=== PATIENT | male | born 1940 | race Two or more races ===

== ENCOUNTER 2020-05-25 09:31 | Inpatient (IN) | payer OTHER ==
[2020-05-25] MEDS ORDERED: ACETAMINOPHEN 1000 MG/100 ML VIAL (NON FORMULARY) IVPB ONE (09:52)
[2020-05-25] MEDS ORDERED: LACTATED RINGERS SOLUTION 1000 ML INFUS.BAG IV STA (09:52)
--- NOTE | 2020-05-25 09:56 | PDOC ---
History of Present Illness - General Chief Complaint: Blood Pressure Problem Stated Complaint: ABSCESS/BP PROBLEM Time Seen by Provider: 05/25/20 09:51 - History of Present Illness Initial Comments: 80 yo male with PMH of metastatic prostate cancer, chronic indwelling catheter, recurrent UTI, chronic pressure ulcer, T2DM, HTN, CAD with CABG. He is brought in from [facility] [address] by EMS for hypotension measuring 90s/50's. He is altered and speaks primarily czech. He endorses shortness of breath, numbness/tingling in upper extremities. 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 His daughter (Adela, ) informed us that he is DNR w/ Comfort Care and chemo/radiation were discontinued. 05/25/20 11:04 Past History - Medical History Allergies/Adverse Reactions: Allergies Allergy/AdvReac Type Severity Reaction Status Date / Time No Known Allergies Allergy Verified 05/25/20 10:28 Home Medications: Ambulatory Orders Abiraterone Acetate [Zytiga] 1,000 mg PO DAILY 05/25/20 Acetaminophen [Tylenol] 650 mg PO Q6H 05/25/20 Aspirin [ASA -] 81 mg PO DAILY 05/25/20 Cefepime HCl/D5w [Maxipime 1 gm Premix Ivpb] 1 gm IV BID 05/25/20 Cholecalciferol (Vitamin D3) [Vitamin D3] 25 mcg PO DAILY 05/25/20 Digoxin [Lanoxin -] 0.125 mg PO DAILY 05/25/20 Enoxaparin Sodium 40 mg SQ DAILY 05/25/20 Insulin Aspart [Novolog] 0 unit SQ PRN 05/25/20 Lisinopril [Prinivil -] 40 mg PO DAILY 05/25/20 Oxycodone HCl 5 mg PO Q6H PRN 05/25/20 Pantoprazole Sodium [Protonix -] 40 mg PO DAILY 05/25/20 Polyethylene Glycol 3350 17 gm PO Q3D 05/25/20 Pravastatin Sodium [Pravachol (Nf)] 80 mg PO DAILY 05/25/20 Sennosides [Senna Lax] 17.2 mg PO HS 05/25/20 Terazosin HCl [Hytrin] 1 mg PO HS 05/25/20 Review of Systems - Review of Systems Constitutional: Yes: Diaphoresis. No: Chills, Fever HEENTM: No: Recent change in vision, Double Vision Respiratory: Yes: Shortness of Breath, SOB at Rest. No: Cough Cardiac (ROS): No: Chest Pain, Edema, Irregular Heart Rate ABD/GI: No: Diarrhea, Nausea, Vomiting : No: Burning, Dysuria, Hematuria Integumentary: Yes: Bruising, Erythema, Lesions (sacral pressure ulcer) Neurological: Yes: Tingling, Tremors, Dizziness. No: Headache Endocrine: Yes: Unexplained Weight Loss. No: Intolerance to Cold, Intolerance to Heat *Physical Exam - Physical Exam General Appearance: Yes: Appropriately Dressed, Apparent Distress. No: Nourished HEENT: positive: EOMI, MARQUEZ, Normal Voice Respiratory/Chest: positive: Lungs Clear, Normal Breath Sounds. negative: Respiratory Distress Cardiovascular: positive: Regular Rhythm, Regular Rate, S1, S2, Edema (mild diffuse edema in all four extremities. ) Vascular Pulses: Femoral (R): 3+, Femoral (L): 3+, Carotid (R): 3+, Carotid (L): 3+, Dorsalis-Pedis (R): 3+, Doralis-Pedis (L): 3+ Gastrointestinal/Abdominal: positive: Normal Bowel Sounds, Flat, Soft. negative: Tender Musculoskeletal: positive: Normal Inspection, Other (tremor in upper extremities. ) Extremity: positive: Normal Capillary Refill, Normal Inspection, Normal Range of Motion Integumentary: positive: Other (sacral pressure ulcer. non-draining. eschar. ) Neurologic: positive: Alert, Confused, Disoriented. negative: Fully Oriented ED Treatment Course - LABORATORY CBC & Chemistry Diagram: 05/25/20 10:20 05/25/20 10:20 Medical Decision Making - Medical Decision Making 80 yo male with PMH of metastatic prostate cancer, chronic indwelling catheter, recurrent UTI, chronic pressure ulcer, T2DM, HTN, CAD with CABG. He was brought in from [facility] [address] for hypotension 90s/50s and a sacral pressure ulcer. He was given a septic workup with 2L fluids. He was found to have a Hb of 7.0 (previous 7.6), Creatinine 6.1 (previous 1.3), Ca 6.2, Troponin 0.1. He was given 1 g cefepime (home dose) for UTI prophylaxis and 1g Calcium Gluconate for hypocalcemia. CT scan did not identify any acute intracranial pathology but was positive for multiple lytic mandibular lesions. Chest x-ray is negative. EKG showed a biventricular pacemaker but is otherwise benign. Pt is being admitted for Sepsis workup, CHRISTINA, Hypocalcemia, Anemia. Spoke with Dr. Frias for admission to Telemetry. Discharge - Discharge Information Problems reviewed: Yes Clinical Impression/Diagnosis: CHRISTINA (acute kidney injury), Anemia, Sepsis, Sacral decubitus ulcer Condition: Fair - Admission Yes - Follow up/Referral Referrals: ON STAFF,NOT [Primary Care Provider] - - Patient Discharge Instructions - Post Discharge Activity
--- NOTE | 2020-05-25 10:13 | PDOC ---
Attending Attestation - Resident Resident Name: Germaine Fitch - ED Attending Attestation I have performed the following: I have examined & evaluated the patient, The case was reviewed & discussed with the resident, I agree w/resident's findings & plan - HPI HPI: 05/25/20 12:46 80 yo male with PMH of metastatic prostate cancer, chronic indwelling catheter, recurrent UTI, chronic pressure ulcer, T2DM, HTN, CAD with CABG. He is brought in from [facility] on [address] by EMS for hypotension measuring 90s/50's. He is altered and speaks primarily chilean. He endorses shortness of breath, numbness/tingling in upper extremities. 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 His daughter (Adela, ) informed us that he is DNR w/ Comfort Care and chemo/radiation were discontinued. - Physicial Exam PE: 05/25/20 11:50 General: No acute distress, baseline demented, altered HEENT: NCAT, PERRL, EOMI, clear conjunctiva, anicteric, moist mucous membranes, clear oropharynx, no oral lesions.. Neck: neck supple, FROM Resp: CTAB, normal and even respirations, no respiratory distress CVS: RRR, no murmurs, 2+ peripheral pulses throughout, no peripheral edema Abdomen: soft, NTND, no rebound or guarding. No CVAT. : ferguson catheter in place, will replace Back:sacral pressure ulcer. non-draining. eschar. MSK: no edema, VO x4, ROM intact. No clubbing or cyanosis. normal bulk and tone. Neuro: alert, oriented appropriately; no focal neurologic deficits Skin: warm and well perfused, cap refill <2 sec, normal color 05/25/20 12:47 05/25/20 13:18 - Medical Decision Making 05/25/20 11:48 Vital Signs Temp Pulse Resp BP Pulse Ox 99.2 F 100 H 20 94/51 L 97 05/25/20 10:36 05/25/20 10:36 05/25/20 10:36 05/25/20 10:36 05/25/20 10:36 vitals, low grade temp soft BP no respiratory distress Laboratory results notable for anemia, hemoglobin 7 and hematocrit is 21.5. Coags are normal. Patient also with CKD, creatinine today at 6.1. Hypocalcemic 6.2. Patient also have a component of likely demand ischemia, troponin 0.1 with elevated CK levels and alk phos. LFTs are normal Lactic acid normal, reassuring. We will give IV calcium gluconate, hydration, cefepime for his current UTI. He is also given IV fluid hydration, BP has much improved while in route, soft BP 90s over 50s 60s Baseline dementia but now more altered than usual chronic sacral wound/eschar in place. ferguson to be changed out CT head moderate atrophy, periventricular chronic microvascular ischemic changes noted otherwise no acute pathology Chest x-ray limited study no gross infiltrates, AICD is in place COVID swab Septic work-up, cultures confirmed DNR/DNI, also comfort care. admission to [facility]. 05/25/20 13:51 Heart Score/ECG Review #1 ECG reviewed & interpreted by me at: 10:25 Compared to previous ECG there are: Previous ECG unavail 05/25/20 12:47 EKG is V paced pattern, tachycardic at 103 bpm, nonspecific T wave abnormalities are noted, wide QRS, some limitations with artifact, no prior EKG to compare to Discharge - Discharge Information Problems reviewed: Yes - Admission Yes - Discharge Information Clinical Impression/Diagnosis: CHRISTINA (acute kidney injury), Anemia, NSTEMI (non-ST elevated myocardial infarction) Condition: Fair - Follow up/Referral Referrals: ON STAFF,NOT [Primary Care Provider] -
[2020-05-25] MEDS ORDERED: CEFEPIME HCL/D5W 1 GM/50 ML BAG IVPB ONE (10:55)
[2020-05-25 11:15] LABS: BASO % 0.7 % (0-2.0); EOS % 2.6 % (0-4.5); HEMATOCRIT 21.5 % (35.4-49); MCH 29.3 pg (25.7-33.7); MCHC 32.4 g/dl (32.0-35.9); MEAN CELL VOLUME 90.6 fl (80-96); MEAN PLT VOLUME 7.4 fl (7.5-11.1); MONO % 8.5 % (3.8-10.2); NEUT % 80.2 % (42.8-82.8); PLATELET COUNT 314 K/MM3 (134-434); RBC 2.37 M/mm3 (4.00-5.60); RDW 14.9 % (11.9-15.9)
[2020-05-25] MEDS ORDERED: CEFEPIME 1 GM/100 ML BAG IVPB ONE (11:20)
[2020-05-25 11:22] LABS: INR 1.28 (0.83-1.09); PROTHROMBIN TIME (PATIENT) 15.1 SEC (9.7-13.0)
[2020-05-25 11:25] LABS: ACTIVATED PTT 32.4 SECONDS (25.2-36.5)
[2020-05-25 11:43] LABS: ALBUMIN 1.2 g/dl (3.4-5.0); BILIRUBIN,TOTAL 0.5 mg/dL (0.2-1); BLOOD UREA NITROGEN 74.5 mg/dL (7-18); CREATININE 6.1 mg/dL (0.55-1.3); POTASSIUM 3.4 mmol/L (3.5-5.1); TOT PROT 5.4 g/dl (6.4-8.2)
[2020-05-25 11:44] LABS: CALCIUM 6.2 mg/dL (8.5-10.1)
[2020-05-25] MEDS ORDERED: SODIUM CHLORIDE 1,000 ML IV STA (11:46)
[2020-05-25] MEDS ORDERED: CALCIUM GLUCONATE 10% - 1,000 MG/10 ML VIAL IVPB ONE (11:48)
--- NOTE | 2020-05-25 11:50 | EKG ---
Test Reason : Blood Pressure : / mmHG Vent. Rate : 103 BPM Atrial Rate : 098 BPM P-R Int : 000 ms QRS Dur : 128 ms QT Int : 326 ms P-R-T Axes : 000 105 -62 degrees QTc Int : 427 ms POOR DATA QUALITY, INTERPRETATION MAY BE ADVERSELY AFFECTED Ventricular-paced rhythm Biventricular pacemaker detected ABNORMAL ECG NO PREVIOUS ECGS AVAILABLE Confirmed by NEIDA TAMAYO MD ([id number]) on 05/25/2020 11:50:22 AM Referred By: Confirmed By:NEIDA TAMAYO MD
[2020-05-25] MEDS ORDERED: CALCIUM GLUCONATE 10% - 1,000 MG/10 ML VIAL ONE (12:59)
--- NOTE | 2020-05-25 15:00 | CON.CARD ---
Consult Consult Specialty:: Cardiology Reason for Consultation:: Hypotension - History of Present Illness History of Present Illness: This is an 80 year old male with a PMH of DM2, HTN, PPM, CAD (past CABG), metastatic prostate cancer, chronic indwelling catheter, recurrent UTI, and chronic pressure ulcers. He presents now with hypotension, BP 90's/50's. According to the notes, his daughter was contacted that the patient is DNR on comfort care. HCT 22% BUN 75 Cr 6.1 Troponins 0.08 EKG V paced - Smoking History Smoking history: Former smoker Have you smoked in the past 12 months: No Home Medications - Allergies Allergies/Adverse Reactions: Allergies Allergy/AdvReac Type Severity Reaction Status Date / Time No Known Allergies Allergy Verified 05/25/20 10:28 - Home Medications Home Medications: Ambulatory Orders Abiraterone Acetate [Zytiga] 1,000 mg PO DAILY 05/25/20 Acetaminophen [Tylenol] 650 mg PO Q6H 05/25/20 Aspirin [ASA -] 81 mg PO DAILY 05/25/20 Cefepime HCl/D5w [Maxipime 1 gm Premix Ivpb] 1 gm IV BID 05/25/20 Cholecalciferol (Vitamin D3) [Vitamin D3] 25 mcg PO DAILY 05/25/20 Digoxin [Lanoxin -] 0.125 mg PO DAILY 05/25/20 Enoxaparin Sodium 40 mg SQ DAILY 05/25/20 Insulin Aspart [Novolog] 0 unit SQ PRN 05/25/20 Lisinopril [Prinivil -] 40 mg PO DAILY 05/25/20 Oxycodone HCl 5 mg PO Q6H PRN 05/25/20 Pantoprazole Sodium [Protonix -] 40 mg PO DAILY 05/25/20 Polyethylene Glycol 3350 17 gm PO Q3D 05/25/20 Pravastatin Sodium [Pravachol (Nf)] 80 mg PO DAILY 05/25/20 Sennosides [Senna Lax] 17.2 mg PO HS 05/25/20 Terazosin HCl [Hytrin] 1 mg PO HS 05/25/20 Vital Signs: Vital Signs Temperature 99.2 F 05/25/20 10:36 Pulse Rate 100 H 05/25/20 10:36 Respiratory Rate 20 05/25/20 10:36 Blood Pressure 94/51 L 07/09/20 10:36 O2 Sat by Pulse Oximetry (%) 97 05/25/20 10:36 Constitutional: Yes: No Distress HENT: Yes: WNL Neck: Yes: WNL Respiratory: Yes: CTA Bilaterally Gastrointestinal: Yes: Soft Cardiovascular: Yes: Regular Rate and Rhythm Heart Sounds: Yes: S1, S2 Edema: No - Other Data Labs, Other Data: CBC, BMP 05/25/20 10:20 05/25/20 10:20 INR, PTT INR 1.28 (0.83-1.09) H 05/25/20 10:20 Troponin, BNP 05/25/20 05/25/20 10:20 12:59 Troponin I 0.10 H 0.08 H Troponin, BNP 05/25/20 05/25/20 10:20 12:59 Troponin I 0.10 H 0.08 H Assessment/Plan 80 year old male with a PMH of DM2, HTN, PPM, CAD (past CABG), metastatic prostate cancer, chronic indwelling catheter, recurrent UTI, and chronic pressure ulcers. He presents now with hypotension, BP 90's/50's. According to the notes, his daughter was contacted that the patient is DNR on comfort care. HCT 22% BUN 75 Cr 6.1 Troponins 0.08 EKG V paced Minimal troponin leak in the setting of anemia and tachycardia Likely demand ischemia and decreased clearance, not an acute coronary syndrome Echo pending
[2020-05-25] MEDS ORDERED: ACETAMINOPHEN 325 MG TABLET (FP) ONE (16:28)
[2020-05-25] MEDS: ACETAMINOPHEN 325 MG TABLET (FP) PO SCH (16:44)
[2020-05-25] MEDS: DEXTROSE 5%-NORMAL SALINE 1,000 ML IV SCH (16:45)
--- NOTE | 2020-05-25 17:07 | PN ---
Progress Note (short form) - Note Progress Note: ID consult dictated seen in Ed imp/reccd 80 yo man pmh metastatic prostate cancer admitted from [place] with hypotension he is nonambulatory due to spinal mets in ED noted to not have any urine outptu in chronic ferguson per fly winder, ferguson was changed, now with 50 cc urine output received IV hydration and cefepime he is alert with moist cough he has a foulsmelling sacral decub with a large eschar (unstageable) hypotension- cannot r/o pneumonia, uti, infected sacral ulcer renal failure metastatic prostate cancer f/u cultures continue hydration repeat cxray in am zosyn adjusted for renal failure comfort care per family (Noted in ER) Problem List - Problems (1) Hypotension Code(s): I95.9 - HYPOTENSION, UNSPECIFIED (2) CHRISTINA (acute kidney injury) Code(s): N17.9 - ACUTE KIDNEY FAILURE, UNSPECIFIED (3) Prostate cancer metastatic to multiple sites Code(s): C61 - MALIGNANT NEOPLASM OF PROSTATE
[2020-05-25 17:36] LABS: EPI CELLS 18 /uL (0-25.1); HYALINE CASTS 8 /uL (0-3.1); URINE APPEARANCE CLOUDY; URINE BACTERIA 11 /uL (0-1359); URINE BILIRUBIN NEGATIVE (NEGATIVE); URINE COLOR YELLOW; URINE GLUCOSE (UA) NEGATIVE (NEGATIVE); URINE KETONE NEGATIVE (NEGATIVE); URINE LEUK ESTERASE TRACE (NEGATIVE); URINE NITRITE NEGATIVE (NEGATIVE); URINE PROTEIN 2+ (NEGATIVE); URINE RBC 85 /uL (0-23.9); URINE UROBILINOGEN 0.2 mg/dL (0.2-1.0); URINE WBC 30 /uL (0-25.8)
[2020-05-25] MEDS ORDERED: PIPERACILLIN/TAZOB 2.25 GM 2.25 GM/50 ML BAG IVPB ONE (18:29)
[2020-05-25] MEDS: PIPERACILLIN/TAZOB 2.25 GM 2.25 GM in DEXTROSE 5%-WATER - 50 ML IVPB SCH (18:40)
--- NOTE | 2020-05-25 19:00 | CONS ---
DATE OF CONSULTATION: DATE OF DICTATION: 05/25/2020 INFECTIOUS DISEASE CONSULTATION HISTORY OF PRESENT ILLNESS: This is an 80-year-old man with metastatic prostate cancer. He is not ambulatory due to spinal metastases. Chemotherapy and radiation therapy have been stopped. He is comfort care at the [facility]. Sent from the [facility] with hypotension. He was noted in the ER to have a systolic blood pressure of 90. He has a chronic Limon catheter. The ER nurse reports that there was no urine output on arrival to the ER. The Limon catheter was changed. He was treated with IV fluids. He had cultures sent and was given a dose of cefepime. I am asked to see him for further evaluation. The patient is unable to give any history. ALLERGIES: Of note, he has no known drug allergies. MEDICATION: His medications at the [facility] include: 1. Hytrin. 2. Senna. 3. Pravachol. 4. MiraLAX. 5. Protonix. 6. Oxycodone. 7. Lisinopril. 8. NovoLog. 9. Enoxaparin. 10. Digoxin. 11. Vitamin D. 12. Aspirin. 13. Unclear if he was receiving cefepime there. PAST MEDICAL HISTORY: Notable for metastatic prostate cancer. He was on chemotherapy and RT. He has multiple bony metastases. He has a chronic indwelling Limon catheter. History of recurrent UTIs, noninsulin dependent diabetes, coronary artery disease. He is status post CABG, and he has an AICD. SOCIAL HISTORY: He currently is residing at the [facility]. He primarily speaks Kinyarwanda. The nurses are able to speak with him. Per his daughter, he is DNR with comfort care at the [facility]. REVIEW OF SYSTEMS: Notable for shortness of breath. He has some numbness and tingling in his upper extremities, and he also complains of pain. PHYSICAL EXAMINATION: General: He is awake and alert. Vital Signs: T-max 99.3, current temperature is 99.2, pulse of 100, blood pressure 94/51, respiratory rate 20, saturating 97% on 2 L. HEENT: Normocephalic. Eyes are anicteric. He has poor dentition. He is stiff all over. Lungs: Scattered rhonchi. Heart: Regular rate and rhythm. Abdomen: Soft. Extremities: He has bilateral heel ulcers. He has a very large sacral ulcer that is foul smelling with a large eschar. Neurological: He is alert but not able to follow commands. LABORATORY: Notable for a white count of 6000, hemoglobin is 7, platelets are 314, INR is 1.2, BUN and creatinine are 74 and 6.1. Alkaline phosphatase is 263. Creatinine kinase is 665. He has an albumin of 1.2 and COVID PCR is pending. Blood cultures are pending. UA and urine culture have been ordered. Chest x-ray shows the biventricular pacer/AICD without any acute infiltrates. Head CT is negative for any acute intracranial pathology. He has moderate atrophy. IMPRESSION: In summary, this is an elderly man admitted with metastatic prostate cancer and hypotension, cannot rule out pneumonia, urinary tract infection, infected sacral ulcer. He is also in renal failure in the setting of metastatic prostate cancer. Would follow up his culture. Continue hydration. He received a dose of cefepime in the ER. Apparently was on cefepime at the [facility], will need to investigate why. Will repeat a chest x-ray in the morning. Would treat him with Zosyn for now to give him more broad-spectrum coverage to cover the decubitus ulcer and possible aspiration pneumonia. Would repeat a chest x-ray after hydration. Would adjust Zosyn for his renal failure. Comfort care per family, which was noted in the ER. ARACELY RUBIO M.D. [id number] MTDD
[2020-05-25 20:22] LABS: IRON SERUM 13 ug/dL (50-175); TOTAL IRON BINDING CAPACITY 102 ug/dL (250-450)
[2020-05-25 20:26] LABS: BLOOD UREA NITROGEN 75.3 mg/dL (7-18); CREATININE 5.8 mg/dL (0.55-1.3); N-TERMINAL BNP 7367.9 pg/ml (5-450); POTASSIUM 3.2 mmol/L (3.5-5.1)
[2020-05-25 21:05] LABS: CALCIUM 6.6 mg/dL (8.5-10.1)
[2020-05-26] MEDS: ATORVASTATIN CA 10 MG TABLET (FP) PO SCH ×2 (00:30→21:09)
[2020-05-26] MEDS: ACETAMINOPHEN 325 MG TABLET (FP) PO SCH ×5 (01:00→17:44)
[2020-05-26] MEDS: PIPERACILLIN/TAZOB 2.25 GM 2.25 GM in DEXTROSE 5%-WATER - 50 ML IVPB SCH ×3 (03:42→17:44)
[2020-05-26] MEDS: DEXTROSE 5%-NORMAL SALINE 1,000 ML IV SCH ×2 (04:39→16:35)
[2020-05-26] MEDS ORDERED: ACETAMINOPHEN 1000 MG/100 ML VIAL (NON FORMULARY) IVPB ONE (05:24)
[2020-05-26 07:54] LABS: BASO % 0.7 % (0-2.0); HEMATOCRIT 21.2 % (35.4-49); HEMOGLOBIN 7.2 GM/dL (11.7-16.9); LYMPH % 5.6 % (8-40); MCH 30.3 pg (25.7-33.7); MEAN CELL VOLUME 89.1 fl (80-96); MEAN PLT VOLUME 7.5 fl (7.5-11.1); MONO % 5.7 % (3.8-10.2); PLATELET COUNT 302 K/MM3 (134-434); RBC 2.38 M/mm3 (4.00-5.60); RDW 14.6 % (11.9-15.9); WHITE BLOOD COUNT 9.5 K/mm3 (4.0-10.0)
[2020-05-26 08:24] LABS: ALBUMIN 1.1 g/dl (3.4-5.0); ALK PHOS 245 U/L (45-117); ANION GAP 15 MMOL/L (8-16); BILIRUBIN,TOTAL 0.6 mg/dL (0.2-1); BLOOD UREA NITROGEN 74.8 mg/dL (7-18); CHLORIDE 111 mmol/L (98-107); CHOLESTEROL < 50 mg/dL (50-200); CO2 13 mmol/L (21-32); CREATININE 5.5 mg/dL (0.55-1.3); GLUCOSE,RANDOM 100 mg/dL (74-106); SGOT/AST 58 U/L (15-37); SGPT/ALT 14 U/L (13-61); SODIUM 139 mmol/L (136-145); TOT PROT 5.1 g/dl (6.4-8.2)
[2020-05-26 08:56] LABS: CALCIUM 6.4 mg/dL (8.5-10.1)
[2020-05-26] MEDS: ASPIRIN 81 MG CHEWABLE TABLETS PO SCH (10:21)
[2020-05-26] MEDS: ENOXAPARIN NA (PORCINE) 40 MG/0.4 ML DISP.SYRIN SQ SCH (10:21)
[2020-05-26] MEDS: PANTOPRAZOLE 40 MG TABLET PO SCH (10:21)
--- NOTE | 2020-05-26 11:52 | PN ---
Progress Note (short form) - Note Progress Note: much more alert today Vital Signs Period Temp Pulse Resp BP Sys/Garrett Pulse Ox Last 24 Hr 97.3 F-99.2 F 92-111 16-23 75-117/45-77 90-98 cor-rrr lungs decreased bs at bases abd soft,nt ferguson with clear urine ext no edema bilateral heel ulcers, sacral ulcer CBC, BMP 05/26/20 06:40 05/26/20 06:40 Microbiology 05/25/20 10:20 Blood - Peripheral Venous Blood Culture - Preliminary NO GROWTH OBTAINED AFTER 24 HOURS, INCUBATION TO CONTINUE FOR 4 DAYS. 05/25/20 10:20 Blood - Peripheral Venous Blood Culture - Preliminary NO GROWTH OBTAINED AFTER 24 HOURS, INCUBATION TO CONTINUE FOR 4 DAYS. a/p hypotension- cannot r/o pneumonia, uti, infected sacral ulcer acute renal failure-cr was 1.3 on 05/22 metastatic prostate cancer f/u cultures continue hydration-making urine now-f/u with renal repeat cxray zosyn comfort care per family (Noted in ER note)
--- NOTE | 2020-05-26 12:32 | HP ---
Admitting History and Physical - Admission History of Present Illness: 80 yo male with PMH of metastatic prostate cancer, chronic indwelling catheter, recurrent UTI, chronic pressure ulcer, T2DM, HTN, CAD with CABG. He is brought in from [facility] on [address] by EMS for hypotension measuring 90s/50's. He is altered and speaks primarily new zealander. He endorses shortness of breath, numbness/tingling in upper extremities. 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 His daughter (Adela, ) informed us that he is DNR w/ Comfort Care and chemo/radiation were discontinued. - Past Medical History Cardiovascular: Yes: CAD, HTN, Hyperlipdemia Renal/: Yes: Cancer (prostate with mets) Heme/Onc: Yes: Cancer (prostate) - Smoking History Smoking history: Former smoker Have you smoked in the past 12 months: No Home Medications - Allergies Allergies/Adverse Reactions: Allergies Allergy/AdvReac Type Severity Reaction Status Date / Time No Known Allergies Allergy Verified 05/25/20 10:28 - Home Medications Home Medications: Ambulatory Orders Abiraterone Acetate [Zytiga] 1,000 mg PO DAILY 05/25/20 Acetaminophen [Tylenol] 650 mg PO Q6H 05/25/20 Aspirin [ASA -] 81 mg PO DAILY 05/25/20 Cefepime HCl/D5w [Maxipime 1 gm Premix Ivpb] 1 gm IV BID 05/25/20 Cholecalciferol (Vitamin D3) [Vitamin D3] 25 mcg PO DAILY 05/25/20 Digoxin [Lanoxin -] 0.125 mg PO DAILY 05/25/20 Enoxaparin Sodium 40 mg SQ DAILY 05/25/20 Insulin Aspart [Novolog] 0 unit SQ PRN 05/25/20 Lisinopril [Prinivil -] 40 mg PO DAILY 05/25/20 Oxycodone HCl 5 mg PO Q6H PRN 05/25/20 Pantoprazole Sodium [Protonix -] 40 mg PO DAILY 05/25/20 Polyethylene Glycol 3350 17 gm PO Q3D 05/25/20 Pravastatin Sodium [Pravachol (Nf)] 80 mg PO DAILY 05/25/20 Sennosides [Senna Lax] 17.2 mg PO HS 05/25/20 Terazosin HCl [Hytrin] 1 mg PO HS 05/25/20 Physical Examination Vital Signs: Vital Signs Temperature 98.3 F 05/26/20 09:03 Pulse Rate 104 H 05/26/20 09:03 Respiratory Rate 16 05/26/20 09:03 Blood Pressure 89/45 L 05/26/20 09:03 O2 Sat by Pulse Oximetry (%) 98 05/26/20 09:00 Cardiovascular: Yes: S1, S2 Respiratory: Yes: Regular, CTA Bilaterally Gastrointestinal: Yes: Normal Bowel Sounds, Soft Edema: No Integumentary: Yes: Pressure Ulcer Labs: CBC, BMP 05/26/20 06:40 05/26/20 06:40 Problem List - Problems (1) Sepsis Assessment/Plan: CULTURES IV ABX ID ON BOARD FOLLOW LABS DNR/DNI Code(s): A41.9 - SEPSIS, UNSPECIFIED ORGANISM (2) Hypotension Assessment/Plan: CARDIO AND ID CONSULTS APPRECIATED R/O SEPSIS Code(s): I95.9 - HYPOTENSION, UNSPECIFIED (3) CHRISTINA (acute kidney injury) Assessment/Plan: IVF MONITOR RENAL CONSULT Laboratory Tests 05/25/20 05/26/20 19:27 06:40 BUN 75.3 H 74.8 H Creatinine 5.8 H 5.5 H Code(s): N17.9 - ACUTE KIDNEY FAILURE, UNSPECIFIED (4) Anemia Assessment/Plan: FOLLOW TRENDS CONSIDER TRANSFUSION IF FAMILY CONSENTS Laboratory Tests 05/25/20 05/26/20 10:20 06:40 Hgb 7.0 L 7.2 L Code(s): D64.9 - ANEMIA, UNSPECIFIED (5) Sacral decubitus ulcer Code(s): L89.159 - PRESSURE ULCER OF SACRAL REGION, UNSPECIFIED STAGE
--- NOTE | 2020-05-26 13:41 | EKG ---
Test Reason : Blood Pressure : / mmHG Vent. Rate : 098 BPM Atrial Rate : 098 BPM P-R Int : 168 ms QRS Dur : 130 ms QT Int : 366 ms P-R-T Axes : 088 098 -76 degrees QTc Int : 467 ms Atrial-sensed ventricular-paced rhythm Biventricular pacemaker detected ABNORMAL ECG WHEN COMPARED WITH ECG OF 25-MAY-2020 10:22, VENT. RATE HAS DECREASED BY 5 BPM Confirmed by NATASHA ULLOA MD ([id number]) on 05/26/2020 1:41:34 PM Referred By: Confirmed By:NATASHA ULLOA MD
--- NOTE | 2020-05-26 15:38 | ECHO ---
Version: 1 Name: JANETTE CORTEZ Exam: Adult Echocardiogram Study Date: 05/26/2020, 2:21 PM Age: 80 Years Doppler Measurements & Calculations MV E max kaz: 44.9 cm/sec Med E/e': 12.0 MV A max kaz: 91.3 cm/sec Med Peak E' Kaz: 3.7 cm/sec MV E/A: 0.49 Lat E/e': 6.1 Lat Peak E' Kaz: 7.3 cm/sec Ao max P.0 mmHg Ao V2 max: 165.3 cm/sec Left Ventricle Ejection Fraction = 45-50%. The transmitral spectral Doppler flow pattern is suggestive of impaired LV relaxation. Septal motion is consistent with conduction abnormality. Right Ventricle There is a pacemaker lead in the right ventricle. The right ventricle is normal in size and function . Atria Borderline left atrial enlargement. Right atrial size is normal. Mitral Valve The mitral valve is grossly normal. There is no mitral valve stenosis. Tricuspid Valve The tricuspid valve is normal in structure and function. There is mild tricuspid regurgitation. Aortic Valve There is mild aortic sclerosis.;. No hemodynamically significant valvular aortic stenosis. No aortic regurgitation is present. Pulmonic Valve The pulmonic valve is not well seen, but is grossly normal. There is no pulmonic valvular stenosis. Trace pulmonic valvular regurgitation. Great Vessels The aortic root is normal size. Pericardium/Pleura There is no pericardial effusion. Summary Statements Septal motion is consistent with conduction abnormality. Ejection Fraction = 45-50%. The transmitral spectral Doppler flow pattern is suggestive of impaired LV relaxation. There is a pacemaker lead in the right ventricle. The right ventricle is normal in size and function. There is mild tricuspid regurgitation. There is mild aortic sclerosis.; The aortic root is normal size. There is no pericardial effusion. MD Butt 05/26/2020, 3:38 PM *Darrell Ordering Physician: Niurka Galvez Referring Physician: DANAE Performed By: Audra Sky
--- NOTE | 2020-05-26 17:01 | CON.NEP ---
Consult Consult Specialty:: Nephrology Referred by:: Dr. Galvez Reason for Consultation:: Acute kidney injury - History of Present Illness Chief Complaint: Hypotension History of Present Illness: This is a 80 year old male with a past medical history that is significant for metastatic prostate cancer, hypertension, coronary artery disease s/p CABG, chronic indwelling ferguson, recurrent urinary tract infections who was sent in [facility] for hypotension and noted to have acute renal failure. Pt seen and examined at the bedside. Awake and alert but somewhat confused. Mohawk speaking. Denies any pain but has weakness in right side. Has some shortness of breath. No chest pain. Case discussed with the daughter who denies any history of CKD. She confirmed that she is DNR/DNI and comfort care. . - History Source History Provided By: Family Member, Medical Record Limitations to Obtaining History: Clinical Condition - Past Medical History Cardio/Vascular: Yes: CAD, HTN, Hyperlipdemia Renal/: Yes: Cancer (prostate with mets) - Smoking History Smoking history: Former smoker Have you smoked in the past 12 months: No Home Medications - Allergies Allergies/Adverse Reactions: Allergies Allergy/AdvReac Type Severity Reaction Status Date / Time No Known Allergies Allergy Verified 05/25/20 10:28 - Home Medications Home Medications: Ambulatory Orders Abiraterone Acetate [Zytiga] 1,000 mg PO DAILY 05/25/20 Acetaminophen [Tylenol] 650 mg PO Q6H 05/25/20 Aspirin [ASA -] 81 mg PO DAILY 05/25/20 Cefepime HCl/D5w [Maxipime 1 gm Premix Ivpb] 1 gm IV BID 05/25/20 Cholecalciferol (Vitamin D3) [Vitamin D3] 25 mcg PO DAILY 05/25/20 Digoxin [Lanoxin -] 0.125 mg PO DAILY 05/25/20 Enoxaparin Sodium 40 mg SQ DAILY 05/25/20 Insulin Aspart [Novolog] 0 unit SQ PRN 05/25/20 Lisinopril [Prinivil -] 40 mg PO DAILY 05/25/20 Oxycodone HCl 5 mg PO Q6H PRN 05/25/20 Pantoprazole Sodium [Protonix -] 40 mg PO DAILY 05/25/20 Polyethylene Glycol 3350 17 gm PO Q3D 05/25/20 Pravastatin Sodium [Pravachol (Nf)] 80 mg PO DAILY 05/25/20 Sennosides [Senna Lax] 17.2 mg PO HS 05/25/20 Terazosin HCl [Hytrin] 1 mg PO HS 05/25/20 Family Medical History Family History: Unremarkable Review of Systems Unable to obtain ROS, reason: clinical condition Nephrology Consult - Height Height: 5 ft 5 in - Weight Weight: 54.431 kg - BMI Body Mass Index (BMI): 20.0 - Lab Results CBC,BMP: CBC, BMP 05/26/20 06:40 05/26/20 06:40 Anion Gap: Anion Gap Anion Gap 15 MMOL/L (8-16) 05/26/20 06:40 - Imaging Chest X-ray: Report Reviewed, Image Reviewed - Physical Examination Vital Signs: Vital Signs Temperature 97.7 F 05/26/20 14:00 Pulse Rate 102 H 05/26/20 14:00 Respiratory Rate 18 05/26/20 14:00 Blood Pressure 102/49 L 05/26/20 14:00 O2 Sat by Pulse Oximetry (%) 98 05/26/20 09:00 Constitutional: Yes: No Distress Eyes: Yes: Conjunctiva Clear HENT: Yes: Atraumatic Neck: Yes: Supple Cardiovascular: Yes: Regular Rate and Rhythm Respiratory: Yes: Regular, Diminished, On Nasal O2. No: Rales, Rhonchi, SOB Gastrointestinal: Yes: Soft Renal/: No: Bladder Distention, CVA Tenderness - Left, CVA Tenderness - Right Extremities: No: Cyanosis Edema: No Neurological: Yes: Alert Assessment/Plan 80 year old male with a past medical history that is significant for metastatic prostate cancer, hypertension, coronary artery disease s/p CABG, chronic indwelling ferguson, recurrent urinary tract infections who was sent in from [place] for hypotension and noted to have acute renal failure. 1. Acute renal failure 2. Hypotension/Sepsis 3. Metastatic prostate cancer 4. Hx of hypertension 5. CAD s/p CABG 6. Hypokalemia 7. Metabolic acidosis 8. Pseudohypocalcemia (corrected Ca is 8.4) Differential for acute kidney injury: Volume depletion vs. ATN vs. obstruction Start IVF: D5 1/5 NS with 75meq of sodium bicarbonate and 20 meq of KCL As per daughters wishes pt is DNR and comfort measures only. They request not to have further testing. Ideally I would recommend a US of the kidney and bladder but will defer that given pt is comfort measures only Continue supportive care pain control as needed Palliative eval Hospice eval Would avoid further labs draws Thank you Will follow up as needed Marco Palacio DO
[2020-05-26] MEDS ORDERED: [UNRECOGNIZED DRUG - OTHER] IV SCH (18:00)
[2020-05-26] MEDS ORDERED: SODIUM CHLORIDE IV SCH (18:00)
[2020-05-26] MEDS ORDERED: SODIUM BICARBONATE IV SCH (18:00)
[2020-05-26] MEDS: KCL 10 MEQ IVPB 10 MEQ/100 ML INFUS.BAG IVPB SCH ×4 (18:25→19:52)
[2020-05-26] MEDS: SODIUM BICARBONATE IV SCH (18:28)
[2020-05-26] MEDS: [UNRECOGNIZED DRUG - OTHER] IV SCH (18:28)
[2020-05-26] MEDS: POTASSIUM CHLORIDE IV SCH (18:28)
[2020-05-26] MEDS ORDERED: ACETAMINOPHEN 325 MG TABLET (FP) PO ONE (19:45)
[2020-05-27] MEDS: ACETAMINOPHEN 325 MG TABLET (FP) PO SCH ×5 (00:08→18:25)
[2020-05-27] MEDS: PIPERACILLIN/TAZOB 2.25 GM 2.25 GM in DEXTROSE 5%-WATER - 50 ML IVPB SCH ×3 (01:39→18:26)
[2020-05-27] MEDS: MORPHINE SULFATE 2 MG/ML VIAL IVPUSH PRN (07:03)
[2020-05-27] MEDS: POTASSIUM CHLORIDE IV SCH (09:41)
[2020-05-27] MEDS: ASPIRIN 81 MG CHEWABLE TABLETS PO SCH (09:41)
[2020-05-27] MEDS: SODIUM BICARBONATE IV SCH (09:41)
[2020-05-27] MEDS: [UNRECOGNIZED DRUG - OTHER] IV SCH (09:41)
[2020-05-27] MEDS: PANTOPRAZOLE 40 MG TABLET PO SCH (09:41)
[2020-05-27] MEDS: ENOXAPARIN NA (PORCINE) 40 MG/0.4 ML DISP.SYRIN SQ SCH (09:41)
[2020-05-27] MEDS ORDERED: PNEUMOC 13-VAL CONJ-DIP CRM/PF 0.5 ML DISP.SYRIN IM ONE (11:00)
--- NOTE | 2020-05-27 14:47 | PN ---
Progress Note, Physician Chief Complaint: ASLEEP COMFORTABLE APPEARANCE EVENTS AND NOTES REVIEWED - Current Medication List Current Medications: Active Medications Acetaminophen (Tylenol -) 650 mg PO Q6HPO [facility] Last Admin: 05/27/20 12:07 Dose: Not Given Documented by: Aspirin (Asa -) 81 mg PO DAILY [facility] Last Admin: 05/27/20 09:41 Dose: Not Given Documented by: Atorvastatin Calcium (Lipitor -) 10 mg PO HS [facility] Last Admin: 05/26/20 21:09 Dose: 10 mg Documented by: Enoxaparin Sodium (Lovenox -) 40 mg SQ DAILY [facility] Last Admin: 05/27/20 09:41 Dose: 40 mg Documented by: Piperacillin Sod/Tazobactam (Sod 2.25 gm/ Dextrose) 50 mls @ 100 mls/hr IVPB Q8H-IV [facility]; Protocol Last Admin: 05/27/20 09:42 Dose: 100 mls/hr Documented by: Sodium Bicarbonate 75 meq/Potassium Chloride 20 meq/Sodium Chloride 1,085 mls @ 83 mls/hr IV Q13H [facility] Last Admin: 05/27/20 09:41 Dose: 83 mls/hr Documented by: Morphine Sulfate (Morphine Sulfate) 2 mg IVPUSH Q4H PRN PRN Reason: PAIN LEVEL 6-10 Last Admin: 05/27/20 07:03 Dose: 2 mg Documented by: Pantoprazole Sodium (Protonix -) 40 mg PO DAILY [facility] Last Admin: 05/27/20 09:41 Dose: Not Given Documented by: - Objective Vital Signs: Vital Signs Temperature 98.3 F 05/27/20 09:16 Pulse Rate 68 05/27/20 09:16 Respiratory Rate 18 05/27/20 09:16 Blood Pressure 101/48 L 05/27/20 09:16 O2 Sat by Pulse Oximetry (%) 100 05/26/20 21:00 Constitutional: Yes: Mild Distress Eyes: Yes: WNL HENT: Yes: WNL Cardiovascular: Yes: Pulse Irregular Respiratory: Yes: Diminished, On Nasal O2 Gastrointestinal: Yes: Soft Genitourinary: Yes: Limon Present Musculoskeletal: Yes: Muscle Weakness Integumentary: Yes: Pressure Ulcer Wound/Incision: Yes: Dressing Dry and Intact Labs: CBC, BMP 05/26/20 06:40 05/26/20 06:40 INR, PTT INR 1.28 (0.83-1.09) H 05/25/20 10:20 Problem List - Problems (1) CHRISTINA (acute kidney injury) Code(s): N17.9 - ACUTE KIDNEY FAILURE, UNSPECIFIED (2) Anemia Code(s): D64.9 - ANEMIA, UNSPECIFIED (3) Hypotension Code(s): I95.9 - HYPOTENSION, UNSPECIFIED (4) Sacral decubitus ulcer Code(s): L89.159 - PRESSURE ULCER OF SACRAL REGION, UNSPECIFIED STAGE (5) Sepsis Code(s): A41.9 - SEPSIS, UNSPECIFIED ORGANISM Assessment/Plan IVF [facility] LABS ANEMIA WILL REPEAT CBC IN AM WOUND CARE SACRAL ULCER IV ABX PER ID NEPHROLOGY EVAL
[2020-05-27] MEDS: ATORVASTATIN CA 10 MG TABLET (FP) PO SCH (21:06)
[2020-05-28] MEDS: ACETAMINOPHEN 325 MG TABLET (FP) PO SCH ×5 (00:01→23:42)
[2020-05-28] MEDS: SODIUM BICARBONATE IV SCH ×3 (01:03→14:42)
[2020-05-28] MEDS: POTASSIUM CHLORIDE IV SCH ×3 (01:03→14:42)
[2020-05-28] MEDS: [UNRECOGNIZED DRUG - OTHER] IV SCH ×2 (01:03→12:50)
[2020-05-28] MEDS: PIPERACILLIN/TAZOB 2.25 GM 2.25 GM in DEXTROSE 5%-WATER - 50 ML IVPB SCH ×3 (01:03→17:27)
[2020-05-28 07:57] LABS: HEMATOCRIT 24.8 % (35.4-49); HEMOGLOBIN 8.3 GM/dL (11.7-16.9); MCH 29.3 pg (25.7-33.7); MCHC 33.3 g/dl (32.0-35.9); MEAN PLT VOLUME 7.1 fl (7.5-11.1); PLATELET COUNT 357 K/MM3 (134-434); RBC 2.81 M/mm3 (4.00-5.60); RDW 15.3 % (11.9-15.9); WHITE BLOOD COUNT 11.8 K/mm3 (4.0-10.0)
[2020-05-28 08:08] LABS: BLOOD UREA NITROGEN 73.2 mg/dL (7-18); CALCIUM 7.4 mg/dL (8.5-10.1); CREATININE 4.8 mg/dL (0.55-1.3); MAGNESIUM 1.6 mg/dL (1.8-2.4)
[2020-05-28] MEDS ORDERED: DEXTROSE 50%-WATER - 25 GM/50 ML VIAL IVPUSH ONE (08:35)
[2020-05-28] MEDS: ENOXAPARIN NA (PORCINE) 40 MG/0.4 ML DISP.SYRIN SQ SCH (10:18)
[2020-05-28] MEDS: ASPIRIN 81 MG CHEWABLE TABLETS PO SCH (10:18)
[2020-05-28] MEDS: PANTOPRAZOLE 40 MG TABLET PO SCH (10:18)
--- NOTE | 2020-05-28 11:18 | PN ---
Progress Note, Physician Chief Complaint: ASLEEP, AROUSABLE COMFORTABLE APPEARANCE EVENTS AND NOTES REVIEWED - Current Medication List Current Medications: Active Medications Acetaminophen (Tylenol -) 650 mg PO Q6HPO [facility] Last Admin: 05/28/20 05:19 Dose: Not Given Documented by: Aspirin (Asa -) 81 mg PO DAILY [facility] Last Admin: 05/28/20 10:18 Dose: Not Given Documented by: Atorvastatin Calcium (Lipitor -) 10 mg PO HS [facility] Last Admin: 05/27/20 21:06 Dose: Not Given Documented by: Enoxaparin Sodium (Lovenox -) 40 mg SQ DAILY [facility] Last Admin: 05/28/20 10:18 Dose: 40 mg Documented by: Piperacillin Sod/Tazobactam (Sod 2.25 gm/ Dextrose) 50 mls @ 100 mls/hr IVPB Q8H-IV [facility]; Protocol Last Admin: 05/28/20 10:18 Dose: 100 mls/hr Documented by: Sodium Bicarbonate 75 meq/Potassium Chloride 20 meq/Sodium Chloride 1,085 mls @ 83 mls/hr IV Q13H [facility] Last Admin: 05/28/20 01:03 Dose: 83 mls/hr Documented by: Morphine Sulfate (Morphine Sulfate) 2 mg IVPUSH Q4H PRN PRN Reason: PAIN LEVEL 6-10 Last Admin: 05/27/20 07:03 Dose: 2 mg Documented by: Pantoprazole Sodium (Protonix -) 40 mg PO DAILY [facility] Last Admin: 05/28/20 10:18 Dose: Not Given Documented by: - Objective Vital Signs: Vital Signs Temperature 97.9 F 05/28/20 09:33 Pulse Rate 103 H 05/28/20 09:33 Respiratory Rate 20 05/28/20 09:33 Blood Pressure 118/65 05/28/20 09:33 O2 Sat by Pulse Oximetry (%) 100 05/27/20 21:00 Constitutional: Yes: Mild Distress Cardiovascular: Yes: Pulse Irregular Respiratory: Yes: Diminished Gastrointestinal: Yes: Soft Genitourinary: Yes: Limon Present Musculoskeletal: Yes: Muscle Weakness Labs: CBC, BMP 05/28/20 06:52 05/28/20 06:52 INR, PTT INR 1.28 (0.83-1.09) H 05/25/20 10:20 Problem List - Problems (1) CHRISTINA (acute kidney injury) Code(s): N17.9 - ACUTE KIDNEY FAILURE, UNSPECIFIED (2) Anemia Code(s): D64.9 - ANEMIA, UNSPECIFIED (3) Hypotension Code(s): I95.9 - HYPOTENSION, UNSPECIFIED (4) Sacral decubitus ulcer Code(s): L89.159 - PRESSURE ULCER OF SACRAL REGION, UNSPECIFIED STAGE (5) Sepsis Code(s): A41.9 - SEPSIS, UNSPECIFIED ORGANISM Assessment/Plan IVF [facility] ANEMIA WILL REPEAT CBC IN AM WOUND CARE SACRAL ULCER IV ABX PER ID NEPHROLOGY EVAL DNR DNI MONITOR BGM, ADVANCE DIET TO FULL LIQUID
[2020-05-28] MEDS ORDERED: POTASSIUM CHLORIDE ORAL LIQUID 20 MEQ/15 ML PO ONE (11:32)
--- NOTE | 2020-05-28 11:36 | PN ---
Progress Note, Physician Chief Complaint: Acute kidney injury History of Present Illness: Seen and examined at the bedside awake noted to be hypoglycemic this AM no sob, cp, fever, chills . - Current Medication List Current Medications: Active Medications Acetaminophen (Tylenol -) 650 mg PO Q6HPO [facility] Last Admin: 05/28/20 05:19 Dose: Not Given Documented by: Aspirin (Asa -) 81 mg PO DAILY [facility] Last Admin: 05/28/20 10:18 Dose: Not Given Documented by: Atorvastatin Calcium (Lipitor -) 10 mg PO HS [facility] Last Admin: 05/27/20 21:06 Dose: Not Given Documented by: Enoxaparin Sodium (Lovenox -) 40 mg SQ DAILY [facility] Last Admin: 05/28/20 10:18 Dose: 40 mg Documented by: Piperacillin Sod/Tazobactam (Sod 2.25 gm/ Dextrose) 50 mls @ 100 mls/hr IVPB Q8H-IV [facility]; Protocol Last Admin: 05/28/20 10:18 Dose: 100 mls/hr Documented by: Morphine Sulfate (Morphine Sulfate) 2 mg IVPUSH Q4H PRN PRN Reason: PAIN LEVEL 6-10 Last Admin: 05/27/20 07:03 Dose: 2 mg Documented by: Pantoprazole Sodium (Protonix -) 40 mg PO DAILY [facility] Last Admin: 05/28/20 10:18 Dose: Not Given Documented by: - Objective Vital Signs: Vital Signs Temperature 97.9 F 05/28/20 09:33 Pulse Rate 103 H 05/28/20 09:33 Respiratory Rate 20 05/28/20 09:33 Blood Pressure 118/65 05/28/20 09:33 O2 Sat by Pulse Oximetry (%) 100 05/27/20 21:00 Constitutional: Yes: No Distress Cardiovascular: Yes: Regular Rate and Rhythm Respiratory: Yes: Regular Extremities: No: Cyanosis Edema: No Labs: CBC, BMP 05/28/20 06:52 05/28/20 06:52 INR, PTT INR 1.28 (0.83-1.09) H 05/25/20 10:20 Assessment/Plan 80 year old male with a past medical history that is significant for metastatic prostate cancer, hypertension, coronary artery disease s/p CABG, chronic indwe lling ferguson, recurrent urinary tract infections who was sent in from [place] for hypotension and noted to have acute renal failure. 1. Acute renal failure 2. Hypotension/Sepsis 3. Metastatic prostate cancer 4. Hx of hypertension 5. CAD s/p CABG 6. Hypokalemia 7. Metabolic acidosis 8. Pseudohypocalcemia (corrected Ca is 8.4) Renal function slightly improved. Will change IVF to D5W with bicarbonate and KCL supplement potassium orally Given family and pt's wishes for comfort measures only would not check further labs. Will follow up as needed Will follow up as needed Marco Palacio DO
[2020-05-28] MEDS ORDERED: DEXTROSE IV SCH (11:45)
[2020-05-28] MEDS ORDERED: [UNRECOGNIZED DRUG - OTHER] IV SCH (11:45)
[2020-05-28] MEDS ORDERED: WATER IV SCH (11:45)
[2020-05-28] MEDS ORDERED: SODIUM BICARBONATE IV SCH (11:45)
[2020-05-28] MEDS: [UNRECOGNIZED DRUG - OTHER] IV SCH (14:42)
[2020-05-28] MEDS: ATORVASTATIN CA 10 MG TABLET (FP) PO SCH (21:05)
[2020-05-29] MEDS: PIPERACILLIN/TAZOB 2.25 GM 2.25 GM in DEXTROSE 5%-WATER - 50 ML IVPB SCH ×3 (01:30→18:12)
[2020-05-29] MEDS: [UNRECOGNIZED DRUG - OTHER] IV SCH (06:34)
[2020-05-29] MEDS: SODIUM BICARBONATE IV SCH (06:34)
[2020-05-29] MEDS: ACETAMINOPHEN 325 MG TABLET (FP) PO SCH ×4 (06:34→20:37)
[2020-05-29] MEDS: POTASSIUM CHLORIDE IV SCH (06:34)
[2020-05-29 08:55] LABS: EOS % 2.9 % (0-4.5); HEMATOCRIT 23.7 % (35.4-49); HEMOGLOBIN 7.9 GM/dL (11.7-16.9); LYMPH % 6.6 % (8-40); MCH 29.5 pg (25.7-33.7); MCHC 33.4 g/dl (32.0-35.9); MEAN CELL VOLUME 88.2 fl (80-96); MEAN PLT VOLUME 6.9 fl (7.5-11.1); MONO % 6.6 % (3.8-10.2); NEUT % 82.9 % (42.8-82.8); PLATELET COUNT 368 K/MM3 (134-434); RBC 2.69 M/mm3 (4.00-5.60); RDW 15.3 % (11.9-15.9); WHITE BLOOD COUNT 9.4 K/mm3 (4.0-10.0)
--- NOTE | 2020-05-29 09:13 | PN ---
Progress Note, Physician - Current Medication List Current Medications: Active Medications Acetaminophen (Tylenol -) 650 mg PO Q6HPO [facility] Last Admin: 05/29/20 06:34 Dose: Not Given Documented by: Aspirin (Asa -) 81 mg PO DAILY [facility] Last Admin: 05/28/20 10:18 Dose: Not Given Documented by: Atorvastatin Calcium (Lipitor -) 10 mg PO HS [facility] Last Admin: 05/28/20 21:05 Dose: Not Given Documented by: Enoxaparin Sodium (Lovenox -) 40 mg SQ DAILY [facility] Last Admin: 05/28/20 10:18 Dose: 40 mg Documented by: Piperacillin Sod/Tazobactam (Sod 2.25 gm/ Dextrose) 50 mls @ 100 mls/hr IVPB Q8H-IV [facility]; Protocol Last Admin: 05/29/20 01:30 Dose: 100 mls/hr Documented by: Sodium Bicarbonate 75 meq/Potassium Chloride 40 meq/Dextrose 1,095 mls @ 75 mls/hr IV Q14H [facility] Last Admin: 05/29/20 06:34 Dose: 75 mls/hr Documented by: Morphine Sulfate (Morphine Sulfate) 2 mg IVPUSH Q4H PRN PRN Reason: PAIN LEVEL 6-10 Last Admin: 05/27/20 07:03 Dose: 2 mg Documented by: Pantoprazole Sodium (Protonix -) 40 mg PO DAILY [facility] Last Admin: 05/28/20 10:18 Dose: Not Given Documented by: - Objective Vital Signs: Vital Signs Temperature 98.9 F 05/28/20 21:36 Pulse Rate 104 H 05/28/20 21:36 Respiratory Rate 20 05/28/20 21:36 Blood Pressure 125/56 L 05/28/20 21:36 O2 Sat by Pulse Oximetry (%) 98 05/28/20 21:00 Cardiovascular: Yes: S1, S2 Respiratory: Yes: Regular, CTA Bilaterally Gastrointestinal: Yes: Normal Bowel Sounds, Soft. No: Tenderness Edema: No Labs: CBC, BMP 05/29/20 08:28 INR, PTT INR 1.28 (0.83-1.09) H 05/25/20 10:20 Problem List - Problems (1) Sepsis Assessment/Plan: COMFORT CARE DNR/DNI Code(s): A41.9 - SEPSIS, UNSPECIFIED ORGANISM (2) Hypotension Assessment/Plan: CARDIO AND ID CONSULTS APPRECIATED ON IVF Code(s): I95.9 - HYPOTENSION, UNSPECIFIED (3) CHRISTINA (acute kidney injury) Assessment/Plan: IVF MONITOR RENAL CONSULT COMFORT CARE Code(s): N17.9 - ACUTE KIDNEY FAILURE, UNSPECIFIED (4) Anemia Code(s): D64.9 - ANEMIA, UNSPECIFIED (5) Sacral decubitus ulcer Code(s): L89.159 - PRESSURE ULCER OF SACRAL REGION, UNSPECIFIED STAGE
[2020-05-29 09:30] LABS: ALBUMIN 1.1 g/dl (3.4-5.0); BILIRUBIN,TOTAL 0.6 mg/dL (0.2-1); BLOOD UREA NITROGEN 66.9 mg/dL (7-18); CALCIUM 7.4 mg/dL (8.5-10.1); CREATININE 4.7 mg/dL (0.55-1.3); POTASSIUM 3.3 mmol/L (3.5-5.1); TOT PROT 5.7 g/dl (6.4-8.2)
[2020-05-29] MEDS: MORPHINE SULFATE 2 MG/ML VIAL IVPUSH PRN ×3 (09:36→21:29)
[2020-05-29] MEDS: ASPIRIN 81 MG CHEWABLE TABLETS PO SCH (09:37)
[2020-05-29] MEDS: PANTOPRAZOLE 40 MG TABLET PO SCH (09:37)
[2020-05-29] MEDS: ENOXAPARIN NA (PORCINE) 40 MG/0.4 ML DISP.SYRIN SQ SCH (09:37)
[2020-05-29] MEDS: KCL 10 MEQ IVPB 10 MEQ/100 ML INFUS.BAG IVPB SCH ×2 (13:07→14:17)
--- NOTE | 2020-05-29 16:20 | PN ---
Progress Note, Physician Chief Complaint: Acute kidney injury History of Present Illness: Seen and examined at the bedside awake and alert No overnight events On IV fluids labs drawn this morning He denies any chest pain, shortness of breath or abdominal pain . - Current Medication List Current Medications: Active Medications Acetaminophen (Tylenol -) 650 mg PO Q6HPO [facility] Last Admin: 05/29/20 13:12 Dose: Not Given Documented by: Aspirin (Asa -) 81 mg PO DAILY [facility] Last Admin: 05/29/20 09:37 Dose: Not Given Documented by: Atorvastatin Calcium (Lipitor -) 10 mg PO HS [facility] Last Admin: 05/28/20 21:05 Dose: Not Given Documented by: Enoxaparin Sodium (Lovenox -) 40 mg SQ DAILY [facility] Last Admin: 05/29/20 09:37 Dose: Not Given Documented by: Piperacillin Sod/Tazobactam (Sod 2.25 gm/ Dextrose) 50 mls @ 100 mls/hr IVPB Q8H-IV [facility]; Protocol Last Admin: 05/29/20 09:37 Dose: 100 mls/hr Documented by: Sodium Bicarbonate 75 meq/Potassium Chloride 40 meq/Dextrose 1,095 mls @ 75 mls/hr IV Q14H [facility] Last Admin: 05/29/20 06:34 Dose: 75 mls/hr Documented by: Morphine Sulfate (Morphine Sulfate) 2 mg IVPUSH Q4H PRN PRN Reason: PAIN LEVEL 6-10 Last Admin: 05/29/20 14:17 Dose: 2 mg Documented by: Pantoprazole Sodium (Protonix -) 40 mg PO DAILY [facility] Last Admin: 05/29/20 09:37 Dose: Not Given Documented by: - Objective Vital Signs: Vital Signs Temperature 97.5 F L 05/29/20 10:00 Pulse Rate 113 H 05/29/20 10:00 Respiratory Rate 24 H 05/29/20 10:00 Blood Pressure 114/52 L 05/29/20 10:00 O2 Sat by Pulse Oximetry (%) 98 05/29/20 09:00 Constitutional: Yes: No Distress Eyes: Yes: Conjunctiva Clear HENT: Yes: Atraumatic Neck: Yes: Supple Cardiovascular: Yes: Regular Rate and Rhythm Respiratory: Yes: Regular, Diminished Gastrointestinal: Yes: Soft Extremities: No: Cyanosis Edema: No Labs: CBC, BMP 05/29/20 08:28 07/13/20 08:28 INR, PTT INR 1.28 (0.83-1.09) H 05/25/20 10:20 Assessment/Plan 80 year old male with a past medical history that is significant for metastatic prostate cancer, hypertension, coronary artery disease s/p CABG, chronic indwelling ferguson, recurrent urinary tract infections who was sent in [place] for hypotension and noted to have acute renal failure. 1. Acute renal failure 2. Hypotension/Sepsis 3. Metastatic prostate cancer 4. Hx of hypertension 5. CAD s/p CABG 6. Hypokalemia 7. Metabolic acidosis 8. Pseudohypocalcemia (corrected Ca is 8.4) renal function stable at this time. acidosis improved with IV fluids containing bicarbonate continue current IV fluids supplement potassium Given family and pt's wishes for comfort measures only would not check further labs. Will follow up as needed goals of CARE being clarified by palliative Will follow up as needed Marco Palacio DO
[2020-05-29] MEDS: ATORVASTATIN CA 10 MG TABLET (FP) PO SCH (21:31)
[2020-05-30] MEDS: ACETAMINOPHEN 325 MG TABLET (FP) PO SCH ×4 (00:44→17:22)
[2020-05-30] MEDS: PIPERACILLIN/TAZOB 2.25 GM 2.25 GM in DEXTROSE 5%-WATER - 50 ML IVPB SCH ×3 (01:04→17:22)
[2020-05-30] MEDS: MORPHINE SULFATE 2 MG/ML VIAL IVPUSH PRN (04:13)
[2020-05-30] MEDS: [UNRECOGNIZED DRUG - OTHER] IV SCH ×3 (04:25→21:26)
[2020-05-30] MEDS: SODIUM BICARBONATE IV SCH ×3 (04:25→21:26)
[2020-05-30] MEDS: POTASSIUM CHLORIDE IV SCH ×3 (04:25→21:26)
--- NOTE | 2020-05-30 09:18 | PN ---
Progress Note, Physician - Current Medication List Current Medications: Active Medications Acetaminophen (Tylenol -) 650 mg PO Q6HPO [facility] Last Admin: 05/30/20 06:16 Dose: Not Given Documented by: Aspirin (Asa -) 81 mg PO DAILY [facility] Last Admin: 05/29/20 09:37 Dose: Not Given Documented by: Atorvastatin Calcium (Lipitor -) 10 mg PO HS [facility] Last Admin: 05/29/20 21:31 Dose: Not Given Documented by: Enoxaparin Sodium (Lovenox -) 40 mg SQ DAILY [facility] Last Admin: 05/29/20 09:37 Dose: Not Given Documented by: Piperacillin Sod/Tazobactam (Sod 2.25 gm/ Dextrose) 50 mls @ 100 mls/hr IVPB Q8H-IV [facility]; Protocol Last Admin: 05/30/20 01:04 Dose: 100 mls/hr Documented by: Sodium Bicarbonate 75 meq/Potassium Chloride 40 meq/Dextrose 1,095 mls @ 75 mls/hr IV Q14H [facility] Last Admin: 05/30/20 06:17 Dose: Not Given Documented by: Pantoprazole Sodium (Protonix -) 40 mg PO DAILY [facility] Last Admin: 05/29/20 09:37 Dose: Not Given Documented by: - Objective Vital Signs: Vital Signs Temperature 97.9 F 05/29/20 22:00 Pulse Rate 114 H 05/29/20 22:00 Respiratory Rate 22 H 05/29/20 22:00 Blood Pressure 129/62 05/29/20 22:00 O2 Sat by Pulse Oximetry (%) 98 05/29/20 21:00 Cardiovascular: Yes: Regular Rate and Rhythm Respiratory: Yes: Regular, CTA Bilaterally Gastrointestinal: Yes: Normal Bowel Sounds, Soft Labs: CBC, BMP 05/29/20 08:28 05/29/20 08:28 INR, PTT INR 1.28 (0.83-1.09) H 05/25/20 10:20 Problem List - Problems (1) Sepsis Assessment/Plan: COMFORT CARE DNR/DNI Code(s): A41.9 - SEPSIS, UNSPECIFIED ORGANISM (2) Hypotension Assessment/Plan: CARDIO AND ID CONSULTS APPRECIATED ON IVF Code(s): I95.9 - HYPOTENSION, UNSPECIFIED (3) CHRISTINA (acute kidney injury) Assessment/Plan: IVF MONITOR RENAL CONSULT COMFORT CARE Code(s): N17.9 - ACUTE KIDNEY FAILURE, UNSPECIFIED (4) Anemia Assessment/Plan: FOLLOW TRENDS CONSIDER TRANSFUSION IF FAMILY CONSENTS Laboratory Tests 05/25/20 05/26/20 10:20 06:40 Hgb 7.0 L 7.2 L Code(s): D64.9 - ANEMIA, UNSPECIFIED (5) Sacral decubitus ulcer Code(s): L89.159 - PRESSURE ULCER OF SACRAL REGION, UNSPECIFIED STAGE
[2020-05-30] MEDS: ENOXAPARIN NA (PORCINE) 40 MG/0.4 ML DISP.SYRIN SQ SCH (09:36)
[2020-05-30] MEDS: PANTOPRAZOLE 40 MG TABLET PO SCH ×2 (09:37→09:44)
[2020-05-30] MEDS: ASPIRIN 81 MG CHEWABLE TABLETS PO SCH ×2 (09:37→09:44)
--- NOTE | 2020-05-30 15:24 | PN ---
Progress Note, Physician History of Present Illness: AWAKE NO ACUTE DISTRESS AFEBRILE WBC WNL BP IMPROVED BC NO GROWTH - Current Medication List Current Medications: Active Medications Acetaminophen (Tylenol -) 650 mg PO Q6HPO [facility] Last Admin: 05/30/20 11:39 Dose: Not Given Documented by: Aspirin (Asa -) 81 mg PO DAILY [facility] Last Admin: 05/30/20 09:44 Dose: Not Given Documented by: Atorvastatin Calcium (Lipitor -) 10 mg PO HS [facility] Last Admin: 05/29/20 21:31 Dose: Not Given Documented by: Enoxaparin Sodium (Lovenox -) 40 mg SQ DAILY [facility] Last Admin: 05/30/20 09:36 Dose: 40 mg Documented by: Piperacillin Sod/Tazobactam (Sod 2.25 gm/ Dextrose) 50 mls @ 100 mls/hr IVPB Q8H-IV [facility]; Protocol Last Admin: 05/30/20 09:35 Dose: 100 mls/hr Documented by: Sodium Bicarbonate 75 meq/Potassium Chloride 40 meq/Dextrose 1,095 mls @ 75 mls/hr IV Q14H [facility] Last Admin: 05/30/20 06:17 Dose: Not Given Documented by: Pantoprazole Sodium (Protonix -) 40 mg PO DAILY [facility] Last Admin: 05/30/20 09:44 Dose: Not Given Documented by: - Objective Vital Signs: Vital Signs Temperature 97.8 F 05/30/20 14:56 Pulse Rate 115 H 05/30/20 14:56 Respiratory Rate 20 05/30/20 14:56 Blood Pressure 110/60 05/30/20 14:56 O2 Sat by Pulse Oximetry (%) 98 05/29/20 21:00 Constitutional: Yes: No Distress Eyes: Yes: Conjunctiva Clear Cardiovascular: Yes: Regular Rate and Rhythm, S1, S2 Respiratory: Yes: Diminished Gastrointestinal: Yes: Normal Bowel Sounds, Soft. No: Tenderness Edema: Yes Neurological: Yes: Alert Labs: CBC, BMP 05/29/20 08:28 05/29/20 08:28 INR, PTT INR 1.28 (0.83-1.09) H 05/25/20 10:20 Assessment/Plan HYPOTENSION R/O SEPSIS PNEUMONIA UTI CONTINUE EMPIRIC ZOSYN SUPPORTIVE MEASURES
[2020-05-30] MEDS: ATORVASTATIN CA 10 MG TABLET (FP) PO SCH (21:08)
[2020-05-31] MEDS: ACETAMINOPHEN 325 MG TABLET (FP) PO SCH ×5 (00:49→23:19)
[2020-05-31] MEDS: PIPERACILLIN/TAZOB 2.25 GM 2.25 GM in DEXTROSE 5%-WATER - 50 ML IVPB SCH ×2 (01:21→09:07)
[2020-05-31] MEDS: PANTOPRAZOLE 40 MG TABLET PO SCH (09:07)
[2020-05-31] MEDS: ENOXAPARIN NA (PORCINE) 40 MG/0.4 ML DISP.SYRIN SQ SCH (09:07)
[2020-05-31] MEDS: ASPIRIN 81 MG CHEWABLE TABLETS PO SCH (09:07)
--- NOTE | 2020-05-31 09:13 | PN ---
Progress Note, Physician - Current Medication List Current Medications: Active Medications Acetaminophen (Tylenol -) 650 mg PO Q6HPO [facility] Last Admin: 05/31/20 06:24 Dose: Not Given Documented by: Aspirin (Asa -) 81 mg PO DAILY [facility] Last Admin: 05/31/20 09:07 Dose: Not Given Documented by: Atorvastatin Calcium (Lipitor -) 10 mg PO HS [facility] Last Admin: 05/30/20 21:08 Dose: Not Given Documented by: Enoxaparin Sodium (Lovenox -) 40 mg SQ DAILY [facility] Last Admin: 05/31/20 09:07 Dose: 40 mg Documented by: Piperacillin Sod/Tazobactam (Sod 2.25 gm/ Dextrose) 50 mls @ 100 mls/hr IVPB Q8H-IV [facility]; Protocol Last Admin: 05/31/20 09:07 Dose: 100 mls/hr Documented by: Sodium Bicarbonate 75 meq/Potassium Chloride 40 meq/Dextrose 1,095 mls @ 75 mls/hr IV Q14H [facility] Last Admin: 05/30/20 21:26 Dose: 75 mls/hr Documented by: Pantoprazole Sodium (Protonix -) 40 mg PO DAILY [facility] Last Admin: 05/31/20 09:07 Dose: Not Given Documented by: - Objective Vital Signs: Vital Signs Temperature 98.6 F 05/30/20 20:35 Pulse Rate 112 H 05/30/20 20:35 Respiratory Rate 20 05/30/20 20:35 Blood Pressure 125/59 L 05/30/20 20:35 O2 Sat by Pulse Oximetry (%) 100 05/30/20 20:11 Cardiovascular: Yes: S1, S2 Respiratory: Yes: Regular, CTA Bilaterally Gastrointestinal: Yes: Normal Bowel Sounds, Soft Labs: CBC, BMP 05/29/20 08:28 05/29/20 08:28 INR, PTT INR 1.28 (0.83-1.09) H 05/25/20 10:20 Problem List - Problems (1) Sepsis Assessment/Plan: COMFORT CARE DNR/DNI Code(s): A41.9 - SEPSIS, UNSPECIFIED ORGANISM (2) Hypotension Assessment/Plan: CARDIO AND ID CONSULTS APPRECIATED ON IVF and IV ABX Code(s): I95.9 - HYPOTENSION, UNSPECIFIED (3) CHRISTINA (acute kidney injury) Assessment/Plan: IVF MONITOR RENAL CONSULT COMFORT CARE Code(s): N17.9 - ACUTE KIDNEY FAILURE, UNSPECIFIED (4) Anemia Assessment/Plan: FOLLOW TRENDS CONSIDER TRANSFUSION IF FAMILY CONSENTS Laboratory Tests 05/25/20 05/26/20 10:20 06:40 Hgb 7.0 L 7.2 L Code(s): D64.9 - ANEMIA, UNSPECIFIED (5) Sacral decubitus ulcer Code(s): L89.159 - PRESSURE ULCER OF SACRAL REGION, UNSPECIFIED STAGE
--- NOTE | 2020-05-31 11:35 | PN ---
Progress Note (short form) - Note Progress Note: awake, not speaking [facility] evaluation in progress Vital Signs Period Temp Pulse Resp BP Sys/Garrett Pulse Ox Last 24 Hr 97.6 F-98.6 F 81-115 18-20 110-138/52-60 99-100 cor-rrr lungs clear abd soft,nt +sacral ulcer - unstageable with eschar ext bilateral heel ulcers CBC, BMP 05/29/20 08:28 05/29/20 08:28 Microbiology 05/25/20 10:20 Blood - Peripheral Venous Blood Culture - Final NO GROWTH AFTER 5 DAYS INCUBATION 05/25/20 10:20 Blood - Peripheral Venous Blood Culture - Final NO GROWTH AFTER 5 DAYS INCUBATION 05/27/20 01:32 Stool Salmonella/Shigella Culture - Final NO GROWTH OF SALMONELLA OR SHIGELLA SPECIES OBTAINED 05/27/20 01:32 Stool Campylobacter Culture - Final NO GROWTH OF CAMPYLOBACTER SPECIES OBTAINED 05/27/20 01:32 Stool Yersinia Culture - Final NO GROWTH OF YERSINIA SPECIES OBTAINED 05/27/20 01:32 Stool Vibrio Culture - Final NO GROWTH OF VIBRIO SPECIES OBTAINED 05/27/20 01:32 Stool Escherichia coli 0157 Culture - Final NO GROWTH OF E COLI 0157 OBTAINED 05/25/20 16:40 Urine - Urine Clean Catch Urine Culture - Final NO GROWTH OBTAINED a/p acute renal failure-cr was 1.3 on 05/22 metastatic prostate cancer day #7 zosyn- will d/c cultures are negative hospice care per family wishes being arranged please call back if needed
[2020-05-31] MEDS ORDERED: MORPHINE SULFATE 2 MG/ML VIAL IVPUSH PRN (15:26)
[2020-05-31] MEDS: POTASSIUM CHLORIDE IV SCH (15:44)
[2020-05-31] MEDS: [UNRECOGNIZED DRUG - OTHER] IV SCH (15:44)
[2020-05-31] MEDS: SODIUM BICARBONATE IV SCH (15:44)
[2020-05-31] MEDS: AMINO ACIDS/PROTEIN HYDROLYS 30 ML LIQUID.PKT PO SCH (17:34)
[2020-05-31] MEDS: ATORVASTATIN CA 10 MG TABLET (FP) PO SCH (21:10)
[2020-06-01] MEDS: [UNRECOGNIZED DRUG - OTHER] IV SCH ×3 (01:04→20:43)
[2020-06-01] MEDS: POTASSIUM CHLORIDE IV SCH ×3 (01:04→20:43)
[2020-06-01] MEDS: SODIUM BICARBONATE IV SCH ×3 (01:04→20:43)
[2020-06-01] MEDS: ACETAMINOPHEN 325 MG TABLET (FP) PO SCH ×4 (06:00→23:24)
[2020-06-01] MEDS: AMINO ACIDS/PROTEIN HYDROLYS 30 ML LIQUID.PKT PO SCH ×2 (08:41→17:14)
[2020-06-01] MEDS: ENOXAPARIN NA (PORCINE) 40 MG/0.4 ML DISP.SYRIN SQ SCH (10:26)
[2020-06-01] MEDS: PANTOPRAZOLE 40 MG TABLET PO SCH (10:27)
[2020-06-01] MEDS: ASPIRIN 81 MG CHEWABLE TABLETS PO SCH (10:27)
--- NOTE | 2020-06-01 11:17 | PN ---
Progress Note, Physician Chief Complaint: Metastatic prostate Ca CHRISTINA Sepsis Sacral decubitii Anemia History of Present Illness: NAD, awake, sleepy Awaiting acceptance by [facility]. Spoke to SW, sorting out insurance issue. Daughter aware - Current Medication List Current Medications: Active Medications Acetaminophen (Tylenol -) 650 mg PO Q6HPO [facility] Last Admin: 06/01/20 06:00 Dose: Not Given Documented by: Amino Acids (Prosource No Carb Liquid Pkt) 30 ml PO BID@0800,1730 [facility] Last Admin: 06/01/20 08:41 Dose: Not Given Documented by: Aspirin (Asa -) 81 mg PO DAILY [facility] Last Admin: 06/01/20 10:27 Dose: Not Given Documented by: Atorvastatin Calcium (Lipitor -) 10 mg PO HS [facility] Last Admin: 05/31/20 21:10 Dose: Not Given Documented by: Enoxaparin Sodium (Lovenox -) 40 mg SQ DAILY [facility] Last Admin: 06/01/20 10:26 Dose: 40 mg Documented by: Sodium Bicarbonate 75 meq/Potassium Chloride 40 meq/Dextrose 1,095 mls @ 75 mls/hr IV Q14H [facility] Last Admin: 06/01/20 06:35 Dose: 75 mls/hr Documented by: Morphine Sulfate (Morphine Sulfate) 2 mg IVPUSH Q4H PRN PRN Reason: PAIN LEVEL 6-10 Last Admin: 05/31/20 17:31 Dose: 2 mg Documented by: Pantoprazole Sodium (Protonix -) 40 mg PO DAILY [facility] Last Admin: 06/01/20 10:27 Dose: Not Given Documented by: - Objective Vital Signs: Vital Signs Temperature 98.6 F 06/01/20 10:20 Pulse Rate 106 H 06/01/20 10:20 Respiratory Rate 20 06/01/20 10:20 Blood Pressure 115/60 06/01/20 10:20 O2 Sat by Pulse Oximetry (%) 100 06/01/20 10:20 Constitutional: Yes: No Distress, Calm, Cachectic, Thin Cardiovascular: Yes: Regular Rate and Rhythm Respiratory: Yes: Regular, Diminished (BLL) Gastrointestinal: Yes: Normal Bowel Sounds, Soft Genitourinary: Yes: Incontinence Musculoskeletal: Yes: Muscle Weakness Edema: No Peripheral Pulses WNL: Yes Neurological: Yes: Alert Labs: CBC, BMP 05/29/20 08:28 05/29/20 08:28 INR, PTT INR 1.28 (0.83-1.09) H 05/25/20 10:20 Problem List - Problems (1) Functional quadriplegia Problems reviewed: Yes Code(s): R53.2 - FUNCTIONAL QUADRIPLEGIA (2) Malnutrition Problems reviewed: Yes Code(s): E46 - UNSPECIFIED PROTEIN-CALORIE MALNUTRITION (3) CHRISTINA (acute kidney injury) Assessment/Plan: -Nephrology on board -Continue IVF Problems reviewed: Yes Code(s): N17.9 - ACUTE KIDNEY FAILURE, UNSPECIFIED (4) Anemia Assessment/Plan: -Chronic, no further work up indicated at this time Problems reviewed: Yes Code(s): D64.9 - ANEMIA, UNSPECIFIED (5) Prostate cancer metastatic to multiple sites Problems reviewed: Yes Code(s): C61 - MALIGNANT NEOPLASM OF PROSTATE (6) Sacral decubitus ulcer Problems reviewed: Yes Code(s): L89.159 - PRESSURE ULCER OF SACRAL REGION, UNSPECIFIED STAGE (7) Sepsis Assessment/Plan: -Finished IV abx Seen and evaluated by ID -Afebrile Problems reviewed: Yes Code(s): A41.9 - SEPSIS, UNSPECIFIED ORGANISM Assessment/Plan See problem list
[2020-06-01] MEDS: ATORVASTATIN CA 10 MG TABLET (FP) PO SCH (21:24)
[2020-06-02] MEDS: POTASSIUM CHLORIDE IV SCH ×2 (04:47→12:06)
[2020-06-02] MEDS: SODIUM BICARBONATE IV SCH ×2 (04:47→12:06)
[2020-06-02] MEDS: [UNRECOGNIZED DRUG - OTHER] IV SCH ×2 (04:47→12:06)
[2020-06-02] MEDS: ACETAMINOPHEN 325 MG TABLET (FP) PO SCH ×2 (06:30→12:07)
[2020-06-02] MEDS: AMINO ACIDS/PROTEIN HYDROLYS 30 ML LIQUID.PKT PO SCH (08:38)
--- NOTE | 2020-06-02 09:50 | PN ---
Progress Note, Physician - Current Medication List Current Medications: Active Medications Acetaminophen (Tylenol -) 650 mg PO Q6HPO [facility] Last Admin: 06/02/20 06:30 Dose: Not Given Documented by: Amino Acids (Prosource No Carb Liquid Pkt) 30 ml PO BID@0800,1730 [facility] Last Admin: 06/02/20 08:38 Dose: Not Given Documented by: Aspirin (Asa -) 81 mg PO DAILY [facility] Last Admin: 06/01/20 10:27 Dose: Not Given Documented by: Atorvastatin Calcium (Lipitor -) 10 mg PO HS [facility] Last Admin: 06/01/20 21:24 Dose: Not Given Documented by: Enoxaparin Sodium (Lovenox -) 40 mg SQ DAILY [facility] Last Admin: 06/01/20 10:26 Dose: 40 mg Documented by: Sodium Bicarbonate 75 meq/Potassium Chloride 40 meq/Dextrose 1,095 mls @ 75 mls/hr IV Q14H [facility] Last Admin: 06/02/20 04:47 Dose: Not Given Documented by: Morphine Sulfate (Morphine Sulfate) 2 mg IVPUSH Q4H PRN PRN Reason: PAIN LEVEL 6-10 Last Admin: 05/31/20 17:31 Dose: 2 mg Documented by: Pantoprazole Sodium (Protonix -) 40 mg PO DAILY [facility] Last Admin: 06/01/20 10:27 Dose: Not Given Documented by: - Objective Vital Signs: Vital Signs Temperature 98.9 F 06/01/20 22:16 Pulse Rate 114 H 06/01/20 22:16 Respiratory Rate 20 06/01/20 22:16 Blood Pressure 128/78 06/01/20 22:16 O2 Sat by Pulse Oximetry (%) 98 06/01/20 22:16 Cardiovascular: Yes: S1, S2 Respiratory: Yes: Regular, CTA Bilaterally Gastrointestinal: Yes: Normal Bowel Sounds, Soft Labs: CBC, BMP 05/29/20 08:28 05/29/20 08:28 INR, PTT INR 1.28 (0.83-1.09) H 05/25/20 10:20 Problem List - Problems (1) Sepsis Code(s): A41.9 - SEPSIS, UNSPECIFIED ORGANISM (2) Hypotension Code(s): I95.9 - HYPOTENSION, UNSPECIFIED (3) CHRISTINA (acute kidney injury) Code(s): N17.9 - ACUTE KIDNEY FAILURE, UNSPECIFIED (4) Anemia Code(s): D64.9 - ANEMIA, UNSPECIFIED (5) Sacral decubitus ulcer Code(s): L89.159 - PRESSURE ULCER OF SACRAL REGION, UNSPECIFIED STAGE Assessment/Plan - Problems (1) Functional quadriplegia Problems reviewed: Yes Code(s): R53.2 - FUNCTIONAL QUADRIPLEGIA (2) Malnutrition Problems reviewed: Yes Code(s): E46 - UNSPECIFIED PROTEIN-CALORIE MALNUTRITION (3) CHRISTINA (acute kidney injury) Assessment/Plan: -Nephrology on board -Continue IVF Problems reviewed: Yes Code(s): N17.9 - ACUTE KIDNEY FAILURE, UNSPECIFIED (4) Anemia Assessment/Plan: -Chronic, no further work up indicated at this time Problems reviewed: Yes Code(s): D64.9 - ANEMIA, UNSPECIFIED (5) Prostate cancer metastatic to multiple sites Problems reviewed: Yes Code(s): C61 - MALIGNANT NEOPLASM OF PROSTATE (6) Sacral decubitus ulcer Problems reviewed: Yes Code(s): L89.159 - PRESSURE ULCER OF SACRAL REGION, UNSPECIFIED STAGE (7) Sepsis Assessment/Plan: -Finished IV abx Seen and evaluated by ID -Afebrile Problems reviewed: Yes Code(s): A41.9 - SEPSIS, UNSPECIFIED ORGANISM
[2020-06-02] MEDS: PANTOPRAZOLE 40 MG TABLET PO SCH (09:57)
[2020-06-02] MEDS: ENOXAPARIN NA (PORCINE) 40 MG/0.4 ML DISP.SYRIN SQ SCH (09:57)
[2020-06-02] MEDS: ASPIRIN 81 MG CHEWABLE TABLETS PO SCH (09:57)
[2020-06-02 10:18] VITALS: BP 129/75; PULSE 110; TEMP 98.2
--- NOTE | 2020-06-02 13:49 | DS ---
Physical Examination Vital Signs: Vital Signs Temperature 98.2 F 06/02/20 10:00 Pulse Rate 110 H 06/02/20 10:00 Respiratory Rate 20 06/02/20 10:00 Blood Pressure 129/75 06/02/20 10:00 O2 Sat by Pulse Oximetry (%) 99 06/02/20 10:00 Findings/Remarks: Metastatic prostate Ca CHRISTINA Sepsis Sacral decubitii Cardiovascular: Yes: S1, S2 Respiratory: Yes: Regular, CTA Bilaterally Gastrointestinal: Yes: Normal Bowel Sounds, Soft Neurological: Yes: Alert Labs: CBC, BMP 05/29/20 08:28 05/29/20 08:28 Discharge Summary Problems reviewed: Yes Reason For Visit: ACUTE KIDNEY INJ,HYPOCALCEMIA,MALIGNANT NEOPLASM Current Active Problems CHRISTINA (acute kidney injury) (Acute) Anemia (Acute) Functional quadriplegia (Acute) Hypotension (Acute) Malnutrition (Acute) Prostate cancer metastatic to multiple sites (Acute) Sacral decubitus ulcer (Acute) Sepsis (Acute) Hospital Course: 80 year old male with a past medical history that is significant for metastatic prostate cancer, hypertension, coronary artery disease s/p CABG, chronic indwelling ferguson, recurrent urinary tract infections who was sent in from [place] for hypotension and noted to have acute renal failure. Pt seen and examined at the bedside. Awake and alert but somewhat confused. Greek speaking. Denies any pain but has weakness in right side. Has some shortness of breath. No chest pain. DNR/DNI and comfort care. Metastatic prostate Ca CHRISTINA Sepsis Sacral decubitii Problems (1) Functional quadriplegia Problems reviewed: Yes Code(s): R53.2 - FUNCTIONAL QUADRIPLEGIA (2) Malnutrition Problems reviewed: Yes Code(s): E46 - UNSPECIFIED PROTEIN-CALORIE MALNUTRITION (3) CHRISTINA (acute kidney injury) Assessment/Plan: -Nephrology on board -Continue IVF Problems reviewed: Yes Code(s): N17.9 - ACUTE KIDNEY FAILURE, UNSPECIFIED (4) Anemia Assessment/Plan: -Chronic, no further work up indicated at this time Problems reviewed: Yes Code(s): D64.9 - ANEMIA, UNSPECIFIED (5) Prostate cancer metastatic to multiple sites Problems reviewed: Yes Code(s): C61 - MALIGNANT NEOPLASM OF PROSTATE (6) Sacral decubitus ulcer Problems reviewed: Yes Code(s): L89.159 - PRESSURE ULCER OF SACRAL REGION, UNSPECIFIED STAGE (7) Sepsis Assessment/Plan: -Finished IV abx -Cultures negative -Seen and evaluated by ID -Afebrile Problems reviewed: Yes Code(s): A41.9 - SEPSIS, UNSPECIFIED ORGANISM as per family wishes--comfort care--[facility] Condition: Fair - Instructions Referrals: ON STAFF,NOT [Primary Care Provider] - - Home Medications Comprehensive Discharge Medication List: Ambulatory Orders Acetaminophen [Tylenol] 650 mg PO Q6H 05/25/20 Aspirin [ASA -] 81 mg PO DAILY 05/25/20 Enoxaparin Sodium 40 mg SQ DAILY 05/25/20 Pantoprazole Sodium [Protonix -] 40 mg PO DAILY 05/25/20 Pravastatin Sodium [Pravachol -] 80 mg PO DAILY 05/25/20 Dextrose 5%-Water - [D5w -] 60 ml IV Q14H infus.bag 06/02/20 Morphine Sulfate 2 mg IVPUSH Q4H PRN vial 06/02/20 Potassium Chloride [KCl -] 40 meq IV Q14H vial 06/02/20 Sodium Bicarbonate 8.4% - 75 meq IV Q14H vial 06/02/20
--- NOTE | 2020-06-02 14:41 | PN ---
Progress Note (short form) - Note Progress Note: 1. Acute renal failure 2. Hypotension/Sepsis 3. Metastatic prostate cancer 4. Hx of hypertension 5. CAD s/p CABG 6. Hypokalemia 7. Metabolic acidosis 8. Pseudohypocalcemia (corrected Ca is 8.4) Active Medications Acetaminophen (Tylenol -) 650 mg PO Q6HPO [facility] Last Admin: 06/02/20 12:07 Dose: Not Given Documented by: Amino Acids (Prosource No Carb Liquid Pkt) 30 ml PO BID@0800,1730 [facility] Last Admin: 06/02/20 08:38 Dose: Not Given Documented by: Aspirin (Asa -) 81 mg PO DAILY [facility] Last Admin: 06/02/20 09:57 Dose: 81 mg Documented by: Atorvastatin Calcium (Lipitor -) 10 mg PO HS [facility] Last Admin: 06/01/20 21:24 Dose: Not Given Documented by: Enoxaparin Sodium (Lovenox -) 40 mg SQ DAILY [facility] Last Admin: 06/02/20 09:57 Dose: 40 mg Documented by: Sodium Bicarbonate 75 meq/Potassium Chloride 40 meq/Dextrose 1,095 mls @ 75 mls/hr IV Q14H [facility] Last Admin: 06/02/20 12:06 Dose: 75 mls/hr Documented by: Morphine Sulfate (Morphine Sulfate) 2 mg IVPUSH Q4H PRN PRN Reason: PAIN LEVEL 6-10 Last Admin: 05/31/20 17:31 Dose: 2 mg Documented by: Pantoprazole Sodium (Protonix -) 40 mg PO DAILY [facility] Last Admin: 06/02/20 09:57 Dose: 40 mg Documented by: Last Vital Signs Temp Pulse Resp BP Pulse Ox 98.2 F 110 H 20 129/75 99 06/02/20 10:00 06/02/20 10:00 06/02/20 10:00 06/02/20 10:00 06/02/20 10:00 alert c/od dry mouth Lungs clear Heart reg Abd soft nontender LUE edema CBC, BMP 05/29/20 08:28 05/29/20 08:28 IMP- hypokalemia CHRISTINA on CKD anemia Plan- monitor labs periodically
== END 2020-06-02 15:54 | disposition hospice, inpatient (51) | DRG 871 ==
LOC: JER 09:31 → JERBED 11:46 → UNDOADMIN 11:46 → JERBED 16:01 → J6WEST-2 23:56
PROVIDERS: ADMIT Family Medicine; ATTEND Family Medicine
PROC: 30233N1 Transfusion of Nonautologous Red Blood Cells into Peripheral Vein, Percutaneous Approach (ICD-10-PCS; principal; 2020-05-25)
DX: A41.89 Other specified sepsis (principal); R53.2 Functional quadriplegia; N17.9 Acute kidney failure, unspecified; N39.0 Urinary tract infection, site not specified; E87.2 Acidosis; I24.8 Other forms of acute ischemic heart disease; C79.51 Secondary malignant neoplasm of bone; L97.828 Non-pressure chronic ulcer of other part of left lower leg with other specified severity; E46 Unspecified protein-calorie malnutrition; I25.10 Atherosclerotic heart disease of native coronary artery without angina pectoris; E11.9 Type 2 diabetes mellitus without complications; E78.5 Hyperlipidemia, unspecified; R00.0 Tachycardia, unspecified; E83.51 Hypocalcemia; D64.9 Anemia, unspecified; L89.150 Pressure ulcer of sacral region, unstageable; C61 Malignant neoplasm of prostate; E11.622 Type 2 diabetes mellitus with other skin ulcer; Z68.20 Body mass index [BMI] 20.0-20.9, adult; Z66 Do not resuscitate; I12.9 Hypertensive chronic kidney disease with stage 1 through stage 4 chronic kidney disease, or unspecified chronic kidney disease; E11.22 Type 2 diabetes mellitus with diabetic chronic kidney disease; N18.9 Chronic kidney disease, unspecified; Z95.0 Presence of cardiac pacemaker; Z95.1 Presence of aortocoronary bypass graft
CPT/HCPCS: 36415; 36430; 70450-TC; 71045-TC-FY; 80048; 80053; 81003; 82272; 82465; 82550; 82553; 82565; 82728; 83036; 83540; 83550; 83605; 83735; 83880; 84156; 84300; 84443; 84484; 84540; 85025; 85027; 85610; 85730; 86850; 86900; 86901; 86922; 87040; 87045; 87046; 87086; 87205; 90670; 93005; 93010; 93306-TC; 99285-25; J0131; P9058; U0003